=== PATIENT | female | born 1970 | race Caucasian/White ===

== ENCOUNTER 2016-08-01 19:27 | Emergency (ER) | payer MEDICARE ==
[~2016-08-01 19:27] MED LIST: ALBUTEROL HFA6.7 GM INH; COZAAR100 MG PO; DEPAKOTE ER250 MG PO; EFFEXOR75 MG PO; LASIX40 MG PO; METOPROLOL TART25 MG PO; NEURONTIN800 MG PO; NORVASC10 MG PO; PROTONIX40 MG PO; SEROQUEL100 MG PO; SUBOXONE 8 MG-1 EACH SL; TEGRETOL200 MG PO; TUDORZA 400 MCG INH
== END 2016-08-01 20:35 | disposition home or self-care (01) ==
LOC: ER 19:27
DX: R56.9 Unspecified convulsions (principal); J44.9 Chronic obstructive pulmonary disease, unspecified; I10 Essential (primary) hypertension; F31.9 Bipolar disorder, unspecified; J45.909 Unspecified asthma, uncomplicated; Z79.899 Other long term (current) drug therapy; Z90.710 Acquired absence of both cervix and uterus; Z88.8 Allergy status to other drugs, medicaments and biological substances; Z88.1 Allergy status to other antibiotic agents; Z88.6 Allergy status to analgesic agent